=== PATIENT | male | born 1965 ===

== ENCOUNTER → 2017-01-02 | Day surgery (SDC) | payer BC ==
[~2017-01-02] MED LIST: ACETAMINOPHEN 1000 MG/100 ML VIAL IV ONE; ACETAMINOPHEN/HYDROcodone 325 MG/5 MG TAB ONE; BUPIVACAINE/EPINEPHRINE 0.25% 50 ML VIAL ONE; KETOROLAC TROMETHAMINE 30 MG/ML (IVP) VIAL IV PUSH ONE; LACTATED RINGER'S 1000 ML INJ 1,000 ML ONE; LIDOCAINE 1%/EPINEPHrine 1:100,000 SOLN 20 ML VIAL ONE; MEPERIDINE HCL 25 MG/ML VIAL ONE; MIDAZOLAM HCL 2 MG/2 ML VIAL ONE; ONDANSETRON HCL 4 MG/2 ML VIAL IV PUSH ONE; PROPOFOL 200 MG/20 ML AMP IV ONE; SODIUM CHLOR 0.9% 250 ML INJ 250 ML IV ONE; VANCOMYCIN HCL 1000 MG VIAL ONE; ceFAZolin INJ 1,000 MG VIAL ONE
--- NOTE | 2017-01-03 12:11 | MP ---
cc: AD BOSWELL M.D., ARNP,SKYLAR FONSECA,SALVADOR Thomas MD DATE OF PROCEDURE 01/02/2017 PROCEDURE Reduction and primary repair of incarcerated umbilical hernia. PREOPERATIVE DIAGNOSIS Incarcerated umbilical hernia. POSTOPERATIVE DIAGNOSIS Incarcerated umbilical hernia secondary to incarcerated omentum. ANESTHESIA LMA. SURGEON MD Elbert ESTIMATED BLOOD LOSS Less than 30 mL. FLUIDS 1050 mL crystalloid. COMPLICATIONS None. DRAINS None. SPECIMEN Incarcerated omental tissue to pathology. PROCEDURE IN DETAIL The patient was taken to the operating room and placed on the operating table in the supine position. After an adequate level of laryngeal mask anesthesia was instituted, the abdomen was shaved, prepped and draped. Time-out was taken confirming the correct patient, site and procedure to be performed. The skin and subcutaneous tissue was infiltrated with local anesthetic and a transverse incision made under the umbilicus. Dissection was carried down to the hernia and sharp dissection was used to dissect around and dissect the umbilical skin off of the hernia. The hernia sac was opened and incarcerated omentum which was minimally ischemic was mobilized. The fascial defect was opened slightly allowing for more omentum to be pulled into the wound. The previously incarcerated omentum was ligated with silk suture and divided. The specimen was passed off the table as was the hernia sac. At this point the patient was found to have good fascia and was felt to be at some risk for infection due to the incarceration and mild erythema over the skin. The fascia was then closed with #1 Prolene suture in a transverse interrupted fashion. The wound was injected with 40 mL of 0.25% Marcaine with epinephrine. The umbilical skin was tacked back down to the fascia and the wound closed with interrupted 3-0 Vicryl suture. The skin was closed with 5-0 PDS in a running subcuticular fashion and a 4x4 and Tegaderm applied over the wound after placing Steri-Strips on the incision. The patient had a binder applied, he was extubated and taken back to the recovery room in stable condition. Sponge, needle and instrument counts were reported to be correct x 2. Ad Boswell MD MAF/SSB /11:34 AM 11:56 AM
== END | disposition home or self-care (01) ==
LOC: ESDC 08:22
PROVIDERS: ATTEND Surgery Trauma Surgery
DX: K42.0 Umbilical hernia with obstruction, without gangrene (principal)
CPT/HCPCS: 00750; 49587; 88302; 88305; J0131; J0690; J1885; J2175; J2250; J2405; J3010; J3370; J7050; J7120